=== PATIENT | female | born 1965 | race American Indian/Alaskan Native ===

== ENCOUNTER 2019-07-20 10:24 | Emergency (ER) | payer MEDICARE ==
[2019-07-20 10:38] VITALS: BP 143/85
[2019-07-20 12:01] LABS: Basophils % (Auto) 0.4 % (0.0-1.8); Eosinophils % (Auto) 0.1 % (0.0-4.3); Hematocrit 41.9 % (30.3-42.9); Hemoglobin 13.7 gm/dl (10.1-14.3); Lymphocytes # (Auto) 0.7 K/mm3 (1.2-5.4); Lymphocytes % (Auto) 16.7 % (13.4-35.0); Mean Corpuscular HGB Conc 33 % (30-34); Mean Corpuscular Volume 91 fl (79-97); Monocytes # (Auto) 0.2 K/mm3 (0.0-0.8); Monocytes % (Auto) 5.7 % (0.0-7.3); Platelet Count 200 K/mm3 (140-440); Red Blood Count 4.62 M/mm3 (3.65-5.03); Red Cell Distribution Width 13.5 % (13.2-15.2)
[2019-07-20 12:56] LABS: Alanine Aminotransferase 21 units/L (7-56); Albumin 4.4 g/dL (3.9-5); BUN/Creatinine Ratio 11; Blood Urea Nitrogen 8 mg/dL (7-17); Calcium 9.6 mg/dL (8.4-10.2); Hemolysis Index 10
[2019-07-20] MEDS ORDERED: ONDANSETRON 4 MG ODT TAB PO ONE (13:05)
[2019-07-20] MEDS ORDERED: FAMOTIDINE 20 MG TAB PO ONE (13:05)
--- NOTE | 2019-07-20 13:09 | Emergency Department Report ---
ED Abdominal Pain HPI - General Chief Complaint: Abdominal Pain Stated Complaint: STOMACH PAIN,LOOSE BOWELS, Time Seen by Provider: 07/20/19 12:37 Source: patient Mode of arrival: Ambulatory Limitations: No Limitations - History of Present Illness Initial Comments: 53 year old female presents to ED c/o epigastric pain. Onset was 4 days ago. She states it has been intermittent ache that has been worse in past 1 day and It radiates into RUQ. She states she took an alkaseltzer this morning and that has seemed to provide some relief of this pain. She reports associated nausea and vomitting x 3 since her symptoms started. She also reports having loose stools which was worse when her symptoms first started but she states this is improving. She states the day the pain started she was eating david, and cayenne pepper and then later had nachos. She states since her symptoms started she has not been able to eat well due to the nausea. She also reports urinary frequency but no dysuria or hematuria.She cannot say if food makes her pain worse. She denies any hematoschezia, hematemesis or melana. She denies any CP or SOB. She denies fever or chills. MD Complaint: abdominal pain -: Gradual, days(s) (4) Location: epigastric Radiation: RUQ Severity: mild, moderate Quality: aching Consistency: intermittent Improves With: other (Alkaseltzer) Worsens With: nothing Associated Symptoms: nausea, vomiting, diarrhea - Related Data Previous Rx's Medication Instructions Recorded Last Taken Type Famotidine [Pepcid] 20 mg PO BID #30 tablet 07/20/19 Unknown Rx Ondansetron [Zofran Odt] 4 mg PO Q8HR PRN #12 tab.rapdis 07/20/19 Unknown Rx cephALEXin [Keflex] 500 mg PO Q8HR #21 cap 07/20/19 Unknown Rx Allergies Allergy/AdvReac Type Severity Reaction Status Date / Time No Known Allergies Allergy Verified 07/20/19 10:32 ED Review of Systems ROS: Stated complaint: STOMACH PAIN,LOOSE BOWELS, Other details as noted in HPI ED Past Medical Hx - Past Medical History Previous Medical History?: Yes Hx Seizures: Yes - Surgical History Past Surgical History?: Yes Additional Surgical History: hysterectomy, abd hernia repair - Social History Smoking Status: Never Smoker - Medications Home Medications: Home Medications Medication Instructions Recorded Confirmed Last Taken Type Famotidine [Pepcid] 20 mg PO BID #30 tablet 07/20/19 Unknown Rx Ondansetron [Zofran Odt] 4 mg PO Q8HR PRN #12 tab.rapdis 07/20/19 Unknown Rx cephALEXin [Keflex] 500 mg PO Q8HR #21 cap 07/20/19 Unknown Rx ED Physical Exam - General Limitations: No Limitations General appearance: alert, in no apparent distress - Head Head exam: Present: atraumatic, normocephalic, normal inspection - Eye Eye exam: Present: normal appearance, PERRL, EOMI Pupils: Present: normal accommodation - ENT ENT exam: Present: normal exam, mucous membranes moist - Respiratory Respiratory exam: Present: normal lung sounds bilaterally. Absent: respiratory distress - Cardiovascular Cardiovascular Exam: Present: regular rate, normal heart sounds - GI/Abdominal GI/Abdominal exam: Present: soft, tenderness (Mild ttp epigastric and RUQ area without guarding or rebound. ). Absent: distended - Neurological Exam Neurological exam: Present: alert, oriented X3, CN II-XII intact, normal gait - Psychiatric Psychiatric exam: Present: normal affect, normal mood - Skin Skin exam: Present: intact ED Course Vital Signs 07/20/19 10:37 Temperature 98.7 F Pulse Rate 99 H Respiratory 18 Rate Blood Pressure 143/85 O2 Sat by Pulse 100 Oximetry ED Medical Decision Making - Lab Data Result diagrams: 07/20/19 11:40 07/20/19 11:40 - EKG Data EKG shows normal: sinus rhythm Rate: normal - EKG Data Interpretation: normal EKG - Radiology Data Radiology results: report reviewed Ultrasound Report Signed Patient: ELDA MCCOY MR#: [id number] : 1965 Acct:[id number] Age/Sex: 53 / F ADM Date: 07/20/19 Loc: ED Attending Dr: Ordering Physician: KATHY NEVAREZ Date of Service: 07/20/19 Procedure(s): US abdomen limited Accession Number(s): [id number] cc: KATHY NEVAREZ LIMITED RUQ ABDOMINAL ULTRASOUND INDICATION: Epigastric pain. COMPARISON: No relevant prior imaging study available. FINDINGS: Pancreas: Visualized portions show no significant abnormality. Abdominal Aorta: No significant abnormality. IVC: No significant abnormality. Liver: The liver measures 13.4 cm in length. No significant abnormality. Normal hepatopedal blood flow in the main portal vein. Gallbladder: No significant abnormality. Bile ducts: No significant abnormality. Common bile duct measures 3 mm. Right kidney: No significant abnormality visualized.. Free fluid: None. Additional Findings: None. IMPRESSION: Unremarkable right upper quadrant ultrasound.. Signer Name: Abiel Sotomayor Jr, MD Signed: 07/20/2019 4:27 PM Workstation Name: [id number] Transcribed By: TTR Dictated By: ABIEL SOTOMAYOR JR, MD Electronically Authenticated By: ABIEL SOTOMAYOR JR, MD Signed Date/Time: 07/20/191626 DD/ 25 TD/TT: - Medical Decision Making Pt presents with epigastric pain, nausea, vomiting and urinary frequency. Pt states her abd pain started after eating david, cayenne pepper and spicy nachos. She reports no cp or sob. Pt currently resting comfortably and is playing on her phone. Her US reviewed and nl. Labs also reviewed, UA concerning for UTI with positive nitrites but remaining labs also nl. Urine culture pending. Pt reports improvement of her symptoms since arriving to ED. She is well appearing, no toxic and in no acute distress. She has non surgical abd exam, there CT abd not indicated at this time. Her vs stable. No further w/u, admission nor emergent consult indicated at this time. Suspect gastritis at this time, will also tx for possible UTI. Discussed suspected dx and tx plan with pt. Recommend close f/u with PCP but she understands to return to ED if worse. Critical care attestation.: If time is entered above; I have spent that time in minutes in the direct care of this critically ill patient, excluding procedure time. ED Disposition Clinical Impression: Epigastric pain, Gastritis, UTI (urinary tract infection) Disposition: TO HOME OR SELFCARE Is pt being admited?: No Does the pt Need Aspirin: No Condition: Stable Instructions: Abdominal Pain (ED), Gastritis (ED), Urinary Tract Infection in Women (ED) Additional Instructions: Take medications as prescribed. I would recommend staying away from spicy, acidic foods, alcohol and medications like motrin, aleve and other NSAIDs. Recommend close f/u with PCP. Return to ED if worse. Prescriptions: cephALEXin [Keflex] 500 mg PO Q8HR #21 cap Famotidine [Pepcid] 20 mg PO BID #30 tablet Ondansetron [Zofran Odt] 4 mg PO Q8HR PRN #12 tab.rapdis PRN Reason: Nausea Referrals: TRAVIS EDMONDS MD [Staff Physician] - 3-5 Days Time of Disposition: 16:41
[2019-07-20 14:29] LABS: Bilirubin,Urine NEG (Negative); Blood,Urine NEG (Negative); Color,Urine Yellow (Yellow); Mucus,Urine FEW /HPF; Urobilinogen,Urine < 2.0 mg/dL (<2.0)
--- NOTE | 2019-07-20 16:32 | Ultrasound Report ---
LIMITED RUQ ABDOMINAL ULTRASOUND INDICATION: Epigastric pain. COMPARISON: No relevant prior imaging study available. FINDINGS: Pancreas: Visualized portions show no significant abnormality. Abdominal Aorta: No significant abnormality. IVC: No significant abnormality. Liver: The liver measures 13.4 cm in length. No significant abnormality. Normal hepatopedal blood fl ow in the main portal vein. Gallbladder: No significant abnormality. Bile ducts: No significant abnormality. Common bile duct measures 3 mm. Right kidney: No significant abnormality visualized.. Free fluid: None. Additional Findings: None. IMPRESSION: Unremarkable right upper quadrant ultrasound.. Signer Name: Abiel Sotomayor Jr, MD Signed: 07/20/2019 4:27 PM Workstation Name: [id number]
== END 2019-07-20 16:50 | disposition home or self-care (01) ==
LOC: ED 10:24
DX: K29.70 Gastritis, unspecified, without bleeding (principal); N39.0 Urinary tract infection, site not specified; G40.909 Epilepsy, unspecified, not intractable, without status epilepticus; Z90.710 Acquired absence of both cervix and uterus; Z79.899 Other long term (current) drug therapy
CPT/HCPCS: 36415; 76705; 80053; 81001; 83690; 84484; 84703; 85025; 87086; 93005; 93010; Q0162